=== PATIENT | female | born 1975 | race Caucasian/White ===

== ENCOUNTER 2024-07-02 20:45 | Emergency (ER) | payer SELFPAY ==
[~2024-07-02] VITALS: Ht 162.6 cm; Wt 73.0 kg
[2024-07-02 21:00] VITALS: O2SAT 100
[2024-07-02] MEDS: SODIUM CHLORIDE 0.9% 500 ML IV ONE (21:15)
[2024-07-02 21:25] LABS: EOSINOPHILS % 0.5 % (0.0-5.0); HEMATOCRIT. 36.1 % (36.0-48.0); HEMOGLOBIN. 12.2 g/dL (12.0-16.0); LYMPHOCYTES % 24.2 % (20.0-50.0); MEAN CORPUSCULAR HEMOGLOBIN 30.9 pg (28.0-32.0); MEAN CORPUSCULAR HGB CONC 33.7 g/dL (31.0-37.0); MEAN CORPUSCULAR VOLUME 91.7 fL (81.0-99.0); MEAN PLATELET VOLUME 8.1 fl (7.4-10.4); MONOCYTES % 7.9 % (2.0-8.0); NEUTROPHILS % 65.4 % (40.0-76.0); PLATELET 253 x1000/uL (130-400); RED BLOOD CELL COUNT 3.93 mill/uL (4.2-5.4); RED CELL DISTRIBUTION WIDTH 13.3 % (11.6-14.6); WHITE BLOOD COUNT 8.1 x1000/uL (4.5-11.0)
[2024-07-02 21:27] LABS: CHLORIDE 102 mEq/L (98-107); POTASSIUM 3.7 mEq/L (3.5-5.1); SODIUM 137 mEq/L (136-145)
[2024-07-02 21:29] LABS: CALCIUM 9.2 mg/dL (8.7-10.4); CARBON DIOXIDE 26 mEq/L (21-32)
[2024-07-02 21:33] LABS: HCG SCREEN NEGATIVE
[2024-07-02 21:34] LABS: CREATININE 0.8 mg/dL (0.6-1.0); GLUCOSE 104 mg/dL (70-105); UREA NITROGEN BLOOD 11 mg/dL (9-23)
[2024-07-02 21:36] LABS: ALANINE AMINOTRANSFERASE 10 IU/L (10-49); ALBUMIN 4.1 g/dL (3.2-4.8); ASPARTATE AMINOTRANSFERASE 16 IU/L (<34); BILIRUBIN DIRECT 0.2 mg/dL (<=3.0); BILIRUBIN TOTAL 0.8 mg/dL (0.1-1.0); PROTEIN TOTAL 7.6 g/dL (6.0-8.3)
[2024-07-02] MEDS: ONDANSETRON HCL 4MG/2ML INJ IV STA (22:14)
[2024-07-02] MEDS: MORPHINE SULFATE 4 MG/ML INJ (FOR IV/IM USE) IV STA (22:14)
[2024-07-02 22:33] LABS: CLARITY URINE TURBID (CLEAR); COLOR URINE DARK YELLOW (YELLOW); SPECIFIC GRAVITY URINE 1.014 (1.005-1.030)
[2024-07-02 22:34] LABS: GLUCOSE URINE NEGATIVE (NEGATIVE); KETONES URINE 1+ (NEGATIVE); LEUKOCYTE ESTERASE URINE 3+ (NEGATIVE); NITRITE URINE POSITIVE (NEGATIVE); OCCULT BLOOD URINE 2+ (NEGATIVE); PROTEIN URINE 2+ (NEGATIVE)
[2024-07-02 22:46] LABS: BACTERIA URINE 3+; SQUAMOUS EPITHELIAL CELL URINE 1+ /lpf (RARE/1+); WBC URINE TNTC /hpf (0-2)
[2024-07-03] MEDS: CEFTRIAXONE 1GM/50ML 50 ML IV ONE (00:09)
[2024-07-03] MEDS ORDERED: IBUP-2029 MT (01:19)
[2024-07-03] MEDS ORDERED: CEPH500C2 MT (01:19)
[2024-07-03 01:31] VITALS: BP 114/77; PULSE 96; RESP 16; TEMP 36.9; O2SAT 100
== END 2024-07-03 01:33 | disposition home or self-care (01) ==
LOC: ER 20:45
DX: N39.0 Urinary tract infection, site not specified (principal); Z98.890 Other specified postprocedural states
CPT/HCPCS: 80076; 80048; 81003; 81025; 84703; 83690; 85025; 87086; 87186; 87077; 36415; 74176; 76705; 96361; 96375; 99285; 96365; J2405; J2270; J7030; J0696; Z7610